=== PATIENT | female | born 2000 | race Caucasian/White ===

== ENCOUNTER 2023-11-12 15:33 | Emergency (ER) | payer OTHER ==
[2023-11-12 15:45] VITALS: BP 120/81; PULSE 88; RESP 18; TEMP 98; BMI 27.4
[2023-11-12] MEDS ORDERED: DEXAMETHASONE SOD PHOSPHATE 10 MG/1 ML VIAL ONE (16:17)
[2023-11-12] MEDS ORDERED: ACETAMINOPHEN 500 MG TABLET (FP) ONE (16:17)
[2023-11-12] MEDS: DEXAMETHASONE SOD PHOSPHATE 10 MG/1 ML VIAL IM ONE (16:21)
[2023-11-12] MEDS: ACETAMINOPHEN 500 MG TABLET (FP) PO ONE (16:21)
[2023-11-12 16:26] LABS: THROAT:GRP A STREP NOT DETECTED (NOTDETECTED)
== END 2023-11-12 17:06 | disposition home or self-care (01) ==
LOC: JER 15:33 → JERFT 15:33
PROC: 3E023GC Introduction of Other Therapeutic Substance into Muscle, Percutaneous Approach (ICD-10-PCS; principal; 2023-11-12)
DX: J02.9 Acute pharyngitis, unspecified (principal); Z20.822 Contact with and (suspected) exposure to COVID-19
CPT/HCPCS: 0241U-QW; 87651; 99284-25; J1100